=== PATIENT | female | born 1945 | race Caucasian/White ===

== ENCOUNTER 2022-06-04 07:02 | Emergency (ER) | payer MEDICARE, SELFPAY ==
[2022-06-04] VITALS (39 sets, daily range): BP systolic 101–148; BP diastolic 42–83; PULSE 60–112; RESP 11–29; TEMP 36.9; O2SAT 82–98
--- NOTE | 2022-06-04 06:57 | ED.GENADUL_ITS ---
Discharge Plan Disposition Patient Disposition: Home Condition: Stable Discharge Details Chief Complaint: GenMedical Clinical Impression: Hypomagnesemia, Hypercalcemia, Nausea & vomiting, Infrarenal abdominal aortic aneurysm (AAA) without rupture, Gastric wall thickening Primary Care Provider: Hilda Portillo ED Provider: Ralph Garrison Home Meds and New Rx's Prescriptions: New escitalopram oxalate 10 mg tablet 10 mg PO DAILY Qty: 10 0RF omeprazole 40 mg capsule,delayed release(DR/EC) 40 mg PO DAILY Qty: 10 0RF paroxetine HCl 30 mg tablet 30 mg PO DAILY Qty: 10 0RF trazodone 150 mg tablet 150 mg PO QHS PRNQty: 10 0RF Continued escitalopram oxalate 10 mg Tablet 10 mg PO DAILY paroxetine HCl 10 mg Tablet 30 mg PO DAILY omeprazole 40 mg Capsule,Delayed Release(Dr/Ec) 40 mg PO DAILY trazodone 150 mg Tablet 150 mg PO HS fluticasone furoate-vilanterol 100-25 mcg/dose Blister With Device 1 inh INHALATION DAILY vitamin B48-myedz acid 0.5-1 mg Tablet 1 tab PO DAILY cholecalciferol (vitamin D3) [Vitamin D3] 50 mcg (2,000 unit) Capsule 50 mcg PO DAILY Discharge Instructions Instructions: Acute Nausea and Vomiting (ED), Hypomagnesemia (ED) Additional Instructions: Please read all of the information that accompanies these instructions. You were seen in the emergency department for your nausea and vomiting. You may have a viral infection of your stomach. If you develop fevers worsening pain or have any other concerns please return to the emergency department. You were also found to have a small abnormality in a blood vessel in your abdomen for which radiology recommends an ultrasound to be performed of the aorta in your abdomen within 3 months. A message has been sent to your primary care provider concerning this next test. Please go to your primary care provider later this week as previously scheduled. You are found to have a low magnesium. Please touch base with her primary care about this to determine whether or not you might benefit from supplemental magnesium tablets. Please return to the emergency department if if you have any concerns. Discharge Data Discharge Date/Time-TO BE ENTERED AT DEPARTURE: 06/04/22 11:41 Medical Decision Making 0700 -- 76-year-old female with a history of COPD, depression and insomnia presents for vomiting and abdominal pain for the past 2 weeks and for request for refill of her regular medications which she ran out of 1 week ago. Blood pressure is moderately hypertensive. Remainder of vitals reassuring. Patient appears comfortable and nontoxic. Her abdomen is soft and tender in the upper and lower quadrants. She has no rebound, rigidity or guarding. She denies any tearing or ripping sensation and has no pulsatile masses or peritoneal signs to suggest dissection or ruptured aneurysm. She has no chest pain or shortness of breath to suggest ACS or PE. Differential diagnosis includes viral illness including gastroenteritis, colitis, influenza, UTI, electrolyte abnormality, dehydration. Will obtain screening labs, urinalysis, fluid, CT abdomen and pelvis and give fluid bolus, IV Tylenol, IV Zofran and reassess. EKG notes a rate of 103, sinus, normal axis, PVCs with peaked T waves in V2 and deep T wave inversions in V3 and aVF but no acute ischemic findings and does not appear consistent with STEMI. Repeat posterior EKG no significant change and does not appear consistent with STEMI at this time. No old EKGs on file. Will attempt to obtain an EKG from another facility. 0800 -- Case endorsed to Dr. Garrison to follow-up on labs and imaging and final disposition. We will plan for repeat troponin and EKG. Medical Records Medical records reviewed: Yes I reviewed the patient's medical records. ECG Data Attestation: I personally reviewed and interpreted this ECG (s) as follows: Interpretation: #1 --Rate of 103, sinus, normal axis, PVCs, Intraventricular conduction delay. Peaked T waves in V2. Deep T wave inversions and aVF, V3. T wave inversions noted in V4 through V6. Does not appear consistent with STEMI. #2 --Rate of 116, sinus, normal axis, PVCs, intraventricular conduction delay. Peaked T waves in V2. No STEMI. HPI General Mode of arrival: ambulatory . Date/Time Provider Initiated Documentation: 06/04/22 07:18 . Limitations to Documentation: no limitations . Information obtained by: patient . HPI Narrative: Patient is a 76-year-old female with history of COPD, depression and insomnia who presents in the [place] and for complaint of vomiting and abdominal pain for the past 2 weeks. Patient states she has been vomiting multiple times a day and states she was vomiting last night and all throughout early this morning. She states the vomit is yellow or brown. She denies any hematemesis or coffee- ground appearance. She states she has chronic diarrhea and states this is better than usual lately. She denies any hematochezia or melena. She states abdominal pain is intermittent and feels like a grabbing sensation in her lower abdomen. She also states she ran out of all of her medications recently except for her inhaler for her COPD 1 week ago. She states she needs refills of her trazodone, omeprazole, paroxetine and another medication similar to meloxicam but she is unsure of the name. Patient states she is moving to an apartment in [place] soon and will find a doctor there soon. Patient states she smokes cigarettes but denies any alcohol or drug use. She denies any recent antibiotics. She denies any known fever, chest pain, shortness of breath or urinary symptoms. EMS gave patient a dose of Zofran with some improvement. Related Data Home Medications Medication Instructions Recorded Confirmed cholecalciferol (vitamin D3) 50 50 mcg PO DAILY 06/04/22 06/04/22 mcg (2,000 unit) capsule (Vitamin D3) escitalopram oxalate 10 mg tablet 10 mg PO DAILY 06/04/22 06/04/22 escitalopram oxalate 10 mg tablet 10 mg PO DAILY #10 tabs 06/04/22 fluticasone furoate 100 1 inh inhalation DAILY 06/04/22 06/04/22 mcg-vilanterol 25 mcg/dose inhalation powder omeprazole 40 mg capsule,delayed 40 mg PO DAILY 06/04/22 06/04/22 release omeprazole 40 mg capsule,delayed 40 mg PO DAILY #10 caps 06/04/22 release paroxetine HCl 10 mg tablet 30 mg PO DAILY 06/04/22 06/04/22 paroxetine HCl 30 mg tablet 30 mg PO DAILY #10 tabs 06/04/22 trazodone 150 mg tablet 150 mg PO HS 06/04/22 06/04/22 trazodone 150 mg tablet 150 mg PO QHS PRN #10 tabs 06/04/22 vitamin B12 0.5 mg-folic acid 1 mg 1 tab PO DAILY 06/04/22 06/04/22 tablet Previous Rx's Medication Instructions Recorded escitalopram oxalate 10 mg tablet 10 mg PO DAILY #10 tabs 06/04/22 omeprazole 40 mg capsule,delayed 40 mg PO DAILY #10 caps 06/04/22 release paroxetine HCl 30 mg tablet 30 mg PO DAILY #10 tabs 06/04/22 trazodone 150 mg tablet 150 mg PO QHS PRN #10 tabs 06/04/22 Allergies Allergy/AdvReac Type Severity Reaction Status Date / Time Sulfa (Sulfonamide AdvReac Mild sick Unverified 06/04/22 07:15 Antibiotics) General Stated Complaint: Nausea/Vomit/Diar DONNA: 3 Review of Systems All systems reviewed & are unremarkable except as noted in HPI and below Constitutional Constitutional: Reports as per HPI, Denies chills and Denies fever(s) Eyes Eyes: Denies blurry vision ENT Ears, Nose, Mouth, and Throat: Denies dizziness, Denies sore throat and Denies throat swelling Cardiovascular Cardiovascular: Denies chest pain and Denies dyspnea Respiratory Respiratory: Denies cough and Denies dyspnea Gastrointestinal Gastrointestinal: Reports abdominal pain, Denies diarrhea, Reports nausea and Reports vomiting Genitourinary Genitourinary: Denies hematuria and Denies dysuria Musculoskeletal Musculoskeletal: Denies back pain and Denies numbness Integumentary/Breasts Skin/Breast: Denies lesions and Denies rash Neurologic Neurologic: Denies dizziness, Denies localized weakness and Denies numbness Allergic/Immunologic Allergic/Immunologic: Denies throat swelling PFSH All Active Problems (Updated 06/04/22 @ 09:40 by Ralph Garrison MD) Hypomagnesemia (Acute) Hypercalcemia (Acute) Nausea & vomiting (Acute) Infrarenal abdominal aortic aneurysm (AAA) without rupture (Acute) Gastric wall thickening (Acute) Medical History (Updated 06/04/22 @ 09:40 by Ralph Garrison MD) COPD (chronic obstructive pulmonary disease) Depression Insomnia Surgical History (Updated 06/04/22 @ 07:21 by Allison Girard DO) History of repair of rotator cuff Bilateral Social History Smoking/Tobacco Use Status: Current every day Smoking risk assessment performed?: Yes Alcohol Intake: former Drug use: Never Do you feel safe at home: Yes Do you feel safe in your relationship?: No Additional Social history: moving to own apt Exam Const General: cooperative and no acute distress Nutritional Appearance: thin Orientation: alert, awake and oriented x3 HENMT Head: normal to inspection Ears: hearing grossly abnormal bilaterally (hard of hearing) General nose exam: external nose normal Face and sinus: normal facial exam Mouth: moist mucous membranes Throat: posterior oropharynx normal Eyes General: appearance normal, both eyes and all related structures Pupils: PERRL EOM: EOM intact bilaterally Neck Neck: normal visual inspection and No submandibular swelling Lymphatic: no lymphadenopathy noted Chest Chest: normal inspection of the chest and no tenderness Resp Effort & Inspection: normal respiratory effort and able to speak in complete sentences Auscultation: clear to auscultation bilaterally Cardio Rate: regular rate Rhythm: regular rhythm GI Inspection: normal to inspection Palpation: soft, not firm, not rigid and tender in the LUQ, in the RUQ and suprapubicly Auscultation: hypoactive bowel sounds Skin General skin exam: no rashes or lesions noted Neuro General: patient alert, patient awake and patient oriented x3 Cognition: normal cognition Speech: speech normal Motor: muscle tone normal throughout Sensory Exam: no sensory deficits noted Extrem General: normal to inspection, full ROM, capillary refill normal, no calf tenderness bilaterally and no edema Psych Appearance: grossly normal Mental Status: mental status grossly normal Speech and Movement: speech and movement normal Affect: normal affect Sign Out Sign Out Data: Sign Out Comment: Vomiting and abdominal pain for 2 weeks. Ran out of her regular medications 1 week ago. Initial EKG notes PVCs with peaked T waves and deep T wave inversions in anterior leads but does not appear c/w STEMI. Attempt to obtain old EKG with plan for repeat troponin and repeat EKG. Follow up on labs and imaging and final disposition. Patient will need a refill of her regular medications once nursing able to call her [facility] pharmacy in [place] to d lambertermine her medication list. Last updated by Allison Girard DO at 06/04/22 08:04
--- NOTE | 2022-06-04 07:15 | DI.CT_ITS ---
Exam(s) CT ABDOMEN PELVIS W EXAM: CT ABDOMEN PELVIS W CLINICAL HISTORY: vomiting, diarrhea, abd pain TECHNIQUE: Imaging Protocol: Axial computed tomography images with coronal and sagittal reformatted images were created and reviewed CONTRAST MATERIAL: Intravenous: Omnipaque 350 contrast volume:80 mL Oral: No COMPARISON: No exams were available for comparison FINDINGS: ABDOMEN: Lung Bases: No acute pulmonary process. There is a hiatal hernia present. There is thickening of th e wall of the distal esophagus. Liver: Normal density. No measurable mass. Portal, Superior Mesenteric, and Splenic Veins: Unremarkable. Gallbladder and Biliary Tract: Status post cholecystectomy. No significant biliary ductal dilatation . Pancreas: Normal density, no abnormal calcifications or inflammatory process. Spleen: Normal. Adrenals: No masses seen. Kidneys: Normal size, contour and axis. There is a nonobstructing 3 mm stone in the lower pole of the left kidney. No hydronephrosis. No masses seen. Abdominal Aorta: There is a 3.1 cm infrarenal abdominal aortic aneurysm. Atherosclerosis is present. Bowel: There are diverticula seen in the colon but no evidence of acute diverticulitis. There is mil d bowel wall thickening and enhancement of the wall of the stomach and proximal small bowel. No evid ence of bowel obstruction. No evidence of appendicitis. Peritoneal Cavity: No ascites, collection or mesenteric inflammatory response. No free air. Lymph Nodes: Within normal limits. Bones: Within normal limits for the patient's age. Soft Tissues: Unremarkable. PELVIS: Bladder: There is diffuse thickening of the wall of the urinary bladder. Reproductive Organs: Unremarkable as visualized. Lymph Nodes: Within normal limits. Bones: Within normal limits for the patient's age. IMPRESSION: 1. Diffuse thickening seen in the stomach, proximal small bowel and esophagus. An infectious or infl ammatory process should be considered. Please correlate clinically. 2. 3.1 cm infrarenal abdominal aortic aneurysm. 3. Diverticulosis of the colon but no evidence of acute diverticulitis. RADIATION DOSE DELIVERED: 492.43mGy.cm Total DLP DATA REPOSITORY: All CT scans at this facility are submitted to the National Radiology Data Registry (NRDR) Dose Index Registry (DIR) with the [employer] (A[employer]). RADIATION OPTIMIZATION: All CT scans at this facility use at least one of these dose optimization te chniques: automated exposure control; mA and/or kV adjustment per patient size (includes targeted exa ms where dose is matched to clinical indication); or iterative reconstruction.
--- NOTE | 2022-06-04 07:30 | RT.EKG_ITS ---
APPROVED REPORT Exam: Resting ECG Reason for Exam: epigastric pain Patient Location: E HR:103 bpm ECG Measurements Heart Rate 103 AXIS VT 125 P 42 QRSd 127 QRS 107 QT 389 T -38 QTc 509 Conclusion Sinus tachycardia...rate> 99 Multiform ventricular premature complexes...short R-R, variable morphology Nonspecific intraventricular conduction delay...QRSd >115mS, not LBBB/RBBB Posterior infarct, acute...ST<-0.1 V1-V3 or ST>.05 V7-V9. Sinus. Normal axis. PVCs. Intraventricular conduction delay. Peaked T waves in V2. Deep T wave invers ions in V3. Significant artifact. Does not appear c/w acute ischemic findings.
--- NOTE | 2022-06-04 07:45 | RT.EKG_ITS ---
APPROVED REPORT Exam: Resting ECG Reason for Exam: posterior chest Patient Location: E HR:116 bpm ECG Measurements Heart Rate 116 AXIS UT 101 P 54 QRSd 123 QRS 126 QT 353 T -35 QTc 491 Conclusion Sinus tachycardia...rate> 99 Paired ventricular premature complexes...sequence of 2 V complexes Right atrial enlargement...P>0.25mV 2 lds or<-0.24mV aVR/aVL Nonspecific intraventricular conduction delay...QRSd >115mS, not LBBB/RBBB Nonspecific repol abnormality, diffuse leads...ST dep, T flat/neg, ant/lat/inf ST elevation, consider lateral injury...ST >0.10mV, I aVL V5 V6. Posterior EKG: Sinus. Normal axis. PVCs. Intraventricular conduction delay. Peaked T waves in V2. No STEMI.
[2022-06-04 07:54] LABS: Bilirubin Moderate (Negative); Blood Negative (Negative); Clarity Sl Cloudy (Clear); Glucose Negative (Negative); Ketones 80 mg/dL (Negative); Leukocyte Esterase Negative (Negative); Nitrite Negative (Negative); Specific Gravity >= 1.030 (1.005-1.025); Urobilinogen 0.2 mg/dL (Up to 0.2); pH 6.5 (5-8)
[2022-06-04 08:02] LABS: Bacteria Few HPF (Negative); Crystals Negative HPF (Negative); Epithelial Cells Moderate HPF (Negative); Mucus Moderate (Negative); RBC 0-2 HPF (0-2); WBC 0-2 HPF (0-5)
[2022-06-04 08:03] LABS: C & S Indicated? No/Sq. Contamination
--- NOTE | 2022-06-04 08:15 | W.EDPROG ---
Date of service: 06/04/22 Time of Service: 08:15 Medical Decision Making I received signout on this 76-year-old female in the emergency department in the setting of diarrhea nausea and vomiting. She reported some shortness of breath per EMS. She is requesting refills on her medications. She does have a significant ECG abnormalities with a prolonged QTc and diffuse inferior T wave inversions that extend laterally from V3 through V6. We have no prior ECGs for comparison. She is not having chest pain at the moment but endorses some abdominal discomfort. She is pending a CT scan of her abdomen, fluid bolus, and influenza, COVID, and RSV swab. Will obtain 2 troponins and monitor patient in the ED. 8:22 AM UA nitrite leuk esterase and hematuria negative. 8:30 AM ECG obtained from [facility] which shows inferior T wave inversions leads II, III and aVF and V4 5 and 6. Compared to current ECG ST segment depression and lead V1 is new and T wave inversion in V3 is also no but inferior and lateral ST segment T wave inversions are persistent. 8:57 AM CBC significant for marked leukocytosis at 26.7 K but no anemia and no thrombocytopenia. Influenza, RSV, and COVID all negative. 9 AM Mild hypokalemia with a potassium of 3.4. Mildly elevated creatinine at 1.1. No prior for comparison. Hyperglycemia but no anion gap to suggest DKA. Mild hypercalcemia with a serum potassium of 11.3. Reassuring lipase. Mild hypomagnesemia with a serum magnesium of 1.0 for which patient will receive IV repletion. Negative troponin. Patient reportedly has follow-up in [place] with her PCP next week on June 08. 9:45 AM Patient has had no recurrent emesis in the ED. She feels markedly improved. She is neither tachycardic nor hypotensive. She is no longer short of breath and she is not hypoxic. Her CT did show significant wall thickening of her gastric antrum pylorus and proximal duodenum. This is most likely secondary to viral etiology. She has diverticulosis but no diverticulitis. Patient reports that she is a former alcoholic but has not had anything to drink in 3 months. She reports that several months ago she required magnesium repletion in the emergency department at [facility]. Her CT scan did show a 3.1 cm infrarenal AAA with no evidence of rupture for which radiology advised follow-up with imaging in 3 months. I provided the patient with a copy of her virtual radiology report. We will reach out to the patient's primary care provider Dr. Khadijah He, . I spoke with an powder mill operator at [facility] who will send an [employer] track message to the patient's PCP. I requested an outpatient ultrasound of the patient's AAA. Patient will complete a p.o. challenge. Given her reassuring CT I also repleted her with oral magnesium. 10:45 AM Repeat ECG showing normal sinus rhythm at a rate of 81 with interventricular conduction delay. Normal axis. Persistent T wave inversions in inferior leads. Resolving T wave inversions left chest wall leads. No acute injury pattern. Appears similar to prior from [facility]. 11:20 AM Persistent mild hypocalcemia. Improved creatinine. Normalized calcium. Negative repeat troponin slightly elevated compared to prior but below critical range. Given no chest pain and no concerning ECG changes to suggest benefit from third troponin as I felt that if patient had an elevated third troponin that this would mostly represent type II NSTEMI. We will reach back out to the patient's primary care provider to request outpatient follow-up. Markedly improved magnesium now with slightly hypermagnesemic with a serum magnesium of 2.5 mg/dL. 11:25 AM I spoke with the answering service at the family medicine department at [facility]. They will pass along the message to the on-call provider, Dr. Rowdy Narvaez. I requested outpatient follow-up as patient will likely benefit from possibility of stress test. I did not think that she required an left heart catheterization as she was not having chest pain and her ECG abnormalities resolved with IV fluids and IV magnesium. She would likely benefit from an outpatient stress test. 11:52 AM I spoke with from family medicine at [facility]. I advised him of the patient's detectable but not technically elevated troponin I assay at 55 pg/L. We will pass this along to the patient's primary care provider before her upcoming follow-up pulm appointment later this week. I mentioned the possibility of an outpatient stress test. Sign Out Sign Out Data: Sign Out Comment: Vomiting and abdominal pain for 2 weeks. Ran out of her regular medications 1 week ago. Initial EKG notes PVCs with peaked T waves and deep T wave inversions in anterior leads but does not appear c/w STEMI. Attempt to obtain old EKG with plan for repeat troponin and repeat EKG. Follow up on labs and imaging and final disposition. Patient will need a refill of her regular medications once nursing able to call her [facility] pharmacy in [place] to determine her medication list. Last updated by Allison Girard DO at 06/04/22 08:04 Discharge Plan Discharge Details Chief Complaint: GenMedical Clinical Impression: Hypomagnesemia, Hypercalcemia, Nausea & vomiting, Infrarenal abdominal aortic aneurysm (AAA) without rupture, Gastric wall thickening Primary Care Provider: Hilda He ED Provider: Ralph Garrison [place] Meds and New Rx's Prescriptions: New escitalopram oxalate 10 mg tablet 10 mg PO DAILY Qty: 10 0RF omeprazole 40 mg capsule,delayed release(DR/EC) 40 mg PO DAILY Qty: 10 0RF paroxetine HCl 30 mg tablet 30 mg PO DAILY Qty: 10 0RF trazodone 150 mg tablet 150 mg PO QHS PRNQty: 10 0RF Continued escitalopram oxalate 10 mg Tablet 10 mg PO DAILY paroxetine HCl 10 mg Tablet 30 mg PO DAILY omeprazole 40 mg Capsule,Delayed Release(Dr/Ec) 40 mg PO DAILY trazodone 150 mg Tablet 150 mg PO HS fluticasone furoate-vilanterol 100-25 mcg/dose Blister With Device 1 inh INHALATION DAILY vitamin B55-udvle acid 0.5-1 mg Tablet 1 tab PO DAILY cholecalciferol (vitamin D3) [Vitamin D3] 50 mcg (2,000 unit) Capsule 50 mcg PO DAILY Discharge Instructions Instructions: Acute Nausea and Vomiting (ED), Hypomagnesemia (ED) Additional Instructions: Please read all of the information that accompanies these instructions. You were seen in the emergency department for your nausea and vomiting. You may have a viral infection of your stomach. If you develop fevers worsening pain or have any other concerns please return to the emergency department. You were also found to have a small abnormality in a blood vessel in your abdomen for which radiology recommends an ultrasound to be performed of the aorta in your abdomen within 3 months. A message has been sent to your primary care provider concerning this next test. Please go to your primary care provider later this week as previously scheduled. You are found to have a low magnesium. Please touch base with her primary care about this to determine whether or not you might benefit from supplemental magnesium tablets. Please return to the emergency department if if you have any concerns.
[2022-06-04] MEDS: Normal Saline 250 ML 500 ML IV ×2 (08:37→09:10)
[2022-06-04 08:40] LABS: Abs Immature Grans 0.14 10^3/uL (0.0-0.06); Absolute Basophil Count 0.08 10^3/uL (0.0-0.2); Basophils % 0.3; Eosinophils % 0.1; HCT 42.3 % (36.0-46.0); HGB 13.6 g/dL (11.2-15.7); Immature Grans % 0.5; Lymphocytes % 2.2; MCH 29.1 pg (27.0-33.0); MCHC 32.2 % (32.0-36.0); MCV 90 fL (80-95); MPV 9.4 fL (8.0-11.0); Monocytes % 15.1; Neutrophils % 81.8; Platelet Count 355 10^3/uL (130-400); RBC 4.68 10^6/uL (3.93-5.22); RDW 17.2 % (11.7-14.6); RDW-SD 57.4 fL
[2022-06-04] MEDS: Ondansetron 4 MG/2 ML VIAL IVP (08:40)
[2022-06-04] MEDS: ACETAMINOPHEN 1,000 MG/100 ML BTL 400 MG IVPB (08:42)
[2022-06-04 08:44] LABS: Absolute Eosinophil Count 0.03 10^3/uL (0.0-0.7); Absolute Lymphocyte Count 0.59 10^3/uL (1.2-3.4); Absolute Monocyte Count 4.03 10^3/uL (0.1-0.8); Absolute Neutrophil Count 21.82 10^3/uL (1.2-6.7)
[2022-06-04 08:47] LABS: COVID-19 PCR Negative (Negative); Influenza A PCR Negative (Negative); Influenza B PCR Negative (Negative); RSV PCR Negative (Negative)
[2022-06-04 08:55] LABS: WBC 26.67 10^3/uL (4.4-10.8)
[2022-06-04 08:56] LABS: Diff Comment Agrees w/ Instrument; RBC Morphology Normal
[2022-06-04 08:57] LABS: Source Nasopharynx
[2022-06-04 08:58] LABS: ALT 37 U/L (14-59); AST 28 U/L (15-37); Albumin 4.3 g/dL (3.4-5.0); Alkaline Phosphatase 50 U/L (46-116); Anion Gap 8.4 mmol/L (3-11); BUN 28 mg/dL (7-18); Bilirubin, Total 0.5 mg/dL (0.2-1.0); CO2 36.6 mmol/L (21.0-32.0); CREATININE 1.1 mg/dL (0.55-1.02); Calcium 11.3 mg/dL (8.5-10.1); Chloride 98 mmol/L (98-107); Estimated GFR 51.75 (mL/min/1.73m2); Glucose 151 mg/dL (74-106); Lipase 26 U/L (16-77); Potassium 3.4 mmol/L (3.5-5.1); Sodium 143 mmol/L (136-145); Total Protein 8.6 g/dL (6.4-8.2); Troponin I < 50 ng/L (<or=60)
[2022-06-04] MEDS: Normal Saline - Diluent 50 ML VIAL IJ (09:12)
[2022-06-04] MEDS: Omnipaque 350 MG/ML 100 ML BTL 80 ML IJ (09:13)
[2022-06-04] MEDS: Normal Saline Flush 10 ML SYR IVP (09:15)
[2022-06-04] MEDS: MAGNESIUM SULFATE 2 GM/50 ML BAG IVPB (09:36)
--- NOTE | 2022-06-04 09:37 | DI.VRAD_ITS ---
PROCEDURE INFORMATION: Exam: CT Abdomen And Pelvis With Contrast Exam date and time: 06/04/2022 9:13 AM Age: 76 years old Clinical indication: Other: Vomiting, diarrhea, abd pain; Additional info: R/O cholecystitis, colitis, UTI TECHNIQUE: Imaging protocol: Computed tomography of the abdomen and pelvis with contrast. Contrast material: OMNIPAQUE 350; Contrast volume: 80 ml; Contrast route: INTRAVENOUS (IV); COMPARISON: No relevant prior studies available. FINDINGS: Diaphragm: There is a small hiatal hernia. Liver: Normal. No mass. Gallbladder and bile ducts: There are clips in the gallbladder fossa, post cholecystectomy. Pancreas: Normal. No ductal dilation. Spleen: Normal. No splenomegaly. Adrenal glands: Normal. No mass. Kidneys and ureters: Normal. No hydronephrosis. Stomach and bowel: Significant wall thickening of the gastric antrum, pylorus, and proximal duodenum. No evidence of intestinal obstruction. There are multiple scattered diverticula throughout the colon without evidence of pericolonic inflammatory changes. Appendix: The appendix is not visualized. Intraperitoneal space: Unremarkable. No free air. No significant fluid collection. Vasculature: 3.1 cm infrarenal abdominal aortic aneurysm with no evidence of rupture. Lymph nodes: Unremarkable. No enlarged lymph nodes. Urinary bladder: Unremarkable as visualized. Reproductive: The uterus is atrophic. Bones/joints: Unremarkable. No acute fracture. Soft tissues: Unremarkable. IMPRESSION: 1. Significant wall thickening of the gastric antrum, pylorus, and proximal duodenum. Differential diagnostic considerations include but not limited to infectious or inflammatory etiologies. 2. Small hiatal hernia. 3. 3.1 cm infrarenal abdominal aortic aneurysm with no evidence of rupture. Follow-up imaging in 3 years is recommended. 4. Post cholecystectomy. 5. Diverticulosis coli. Dictated and Authenticated by: Roel Fish MD. Ordering:LOLA Cooper MD
[2022-06-04] MEDS: Magnesium Oxide 400 MG TAB PO (09:43)
--- NOTE | 2022-06-04 10:30 | RT.EKG_ITS ---
APPROVED REPORT Exam: Resting ECG Reason for Exam: Abnormal ECG Patient Location: E HR:81 bpm ECG Measurements Heart Rate 81 AXIS DC 128 P 41 QRSd 105 QRS 101 QT 392 T -47 QTc 457 Conclusion Sinus rhythm...normal P axis, V-rate 60- 99 Probable left atrial enlargement...P >50mS, <-0.10mV V1 Right axis deviation...QRS axis ( 91,269) Abnormal T, consider ischemia, inferior leads...T <-0.20mV, II III aVF Repeat ECG showing normal sinus rhythm at a rate of 81 with interventricular conduction delay. Jasmina l axis. Persistent T wave inversions in inferior leads. Resolving T wave inversions left chest wall leads. No acute injury pattern. Appears similar to prior from [facility].
[2022-06-04 11:10] LABS: Anion Gap 7.7 mmol/L (3-11); BUN 27 mg/dL (7-18); CO2 33.3 mmol/L (21.0-32.0); CREATININE 0.9 mg/dL (0.55-1.02); Chloride 99 mmol/L (98-107); Estimated GFR 65.84 (mL/min/1.73m2); Glucose 125 mg/dL (74-106); Magnesium 2.5 mg/dL (1.8-2.4); Potassium 3.3 mmol/L (3.5-5.1); Sodium 140 mmol/L (136-145); Troponin I 55 ng/L (<or=60)
== END 2022-06-04 11:41 | disposition home or self-care (01) ==
PROVIDERS: Physician Assistant; Emergency Provider Emergency Medicine; PCP Family Medicine
DX: E83.42 Hypomagnesemia (principal); E83.52 Hypercalcemia; I71.43 Infrarenal abdominal aortic aneurysm, without rupture; R11.2 Nausea with vomiting, unspecified; K31.89 Other diseases of stomach and duodenum; D72.829 Elevated white blood cell count, unspecified; J44.9 Chronic obstructive pulmonary disease, unspecified; I10 Essential (primary) hypertension; Z79.51 Long term (current) use of inhaled steroids; Z20.822 Contact with and (suspected) exposure to COVID-19
CPT/HCPCS: 36415; 80048; 80053; 83690; 87637; 93005; 96365; 96368; 96375; 99284; 99285; 74177; 81003; 81015; 83735; 84484; 85025; 93010; J0131; J2405; J3490